=== PATIENT | male | born 1990 | race Two or more races ===

== ENCOUNTER 2021-08-13 16:43 | Emergency (ER) | payer SELFPAY ==
[~2021-08-13] VITALS: Ht 172.7 cm; Wt 160.0 kg
[2021-08-13 16:51] VITALS: BP 132/89
[2021-08-13] MEDS ORDERED: ANUSOL-HC25 MG RE (17:05)
[2021-08-13 17:15] VITALS: BP 132/89
== END 2021-08-13 17:22 | disposition home or self-care (01) | DRG 395 ==
LOC: ED 16:43 → EDBD 16:43 → ED 17:12
DX: K64.9 Unspecified hemorrhoids (principal)